=== PATIENT | male | born 1955 | race Caucasian/White ===

== ENCOUNTER 2018-08-10 19:06 | Emergency (ER) | payer OTHER ==
[2018-08-10 19:47] LABS: ADD MAN DIFF? NO
[2018-08-10 19:51] LABS: BASOPHILS % 0.8 % (0.0-2.0); EOSINOPHILS # 0.1 10^3/ul (0.0-0.5); EOSINOPHILS % 1.5 % (0.0-7.0); HEMATOCRIT 39.7 % (42.0-52.0); LYMPHOCYTES # 1.4 10^3/ul (0.8-2.9); LYMPHOCYTES % 35.5 % (15.0-51.0); MEAN CORPUSCULAR HGB CONC 35.3 g/dl (32.0-37.0); MEAN PLATELET VOLUME 11.5 fl (7.4-10.4); MONOCYTE # 0.4 10^3/ul (0.3-0.9); NEUTROPHIL # 2.1 10^3/ul (1.6-7.5); NEUTROPHILS % 51.9 % (39.0-77.0); PLATELET COUNT 202 10^3/UL (140-415); RED BLOOD COUNT 4.51 10^6/ul (4.70-6.10)
[2018-08-10] MEDS: ASPIRIN 325 MG TAB PO (20:06)
[2018-08-10] MEDS: LIDOCAINE/MYLANTA 40 ML BTL PO (20:06)
[2018-08-10 20:09] LABS: ANION GAP 11 (8-16); BLOOD UREA NITROGEN 16 mg/dl (7-20); CARBON DIOXIDE 27 mmol/L (21-31); CHLORIDE 105 mmol/L (97-110); CREATININE 1.18 mg/dl (0.61-1.24); GLUCOSE 96 mg/dl (70-220); POTASSIUM 4.4 mmol/L (3.5-5.1); SODIUM 139 mmol/L (135-144)
[2018-08-10 20:18] LABS: B-TYPE NATRIURETIC PEPTIDE 68 PG/ML (0-125)
[2018-08-10 20:22] LABS: TROPONIN-I < 0.012 ng/ml (0.000-0.120)
== END 2018-08-10 22:16 | disposition home or self-care (01) ==
LOC: E/R 19:06
DX: K21.9 Gastro-esophageal reflux disease without esophagitis (principal)
CPT/HCPCS: 36415; 71045; 80048; 83880; 84484; 85025; 93005; 99285-25

== ENCOUNTER 2019-06-04 06:16 | Day surgery (SDC) | payer OTHER ==
[2019-06-04] MEDS ORDERED: MIDAZOLAM 1 MG/ML 2 ML INJ (09:21)
[2019-06-04] MEDS ORDERED: FENTAnyl 50 MCG/ML VIAL (09:21)
== END 2019-06-04 11:58 | disposition home or self-care (01) ==
LOC: GIL 06:16
DX: K92.1 Melena (principal); K64.8 Other hemorrhoids; K44.9 Diaphragmatic hernia without obstruction or gangrene; K21.0 Gastro-esophageal reflux disease with esophagitis; K29.30 Chronic superficial gastritis without bleeding
CPT/HCPCS: 43239; 88305; 88312